=== PATIENT | female | born 1995 | race Caucasian/White ===

== ENCOUNTER 2017-02-24 11:19 | Emergency (ER) | payer OTHER ==
[~2017-02-24] VITALS: Wt 59.5 kg
[~2017-02-24 11:19] MED LIST: FERR27TA PO; PREN1TAB17 PO
[2017-02-24 12:52] LABS: BASOPHILS % 0.3 % (0.0-2.0); EOSINOPHILS % 0.5 % (0.0-7.0); HEMATOCRIT 38.6 % (37.0-47.0); HEMOGLOBIN 12.8 g/dl (12.0-16.0); LYMPHOCYTES # 1.9 10^3/ul (0.8-2.9); LYMPHOCYTES % 31.6 % (15.0-51.0); MEAN CORPUSCULAR HGB CONC 33.2 g/dl (32.0-37.0); MEAN CORPUSCULAR VOLUME 78.5 fl (82.0-101.0); MEAN PLATELET VOLUME 10.8 fl (7.4-10.4); MONOCYTE # 0.4 10^3/ul (0.3-0.9); NEUTROPHIL # 3.7 10^3/ul (1.6-7.5); NEUTROPHILS % 61.3 % (39.0-77.0); PLATELET COUNT 192 10^3/UL (140-415); RED BLOOD COUNT 4.92 10^6/ul (4.20-5.40); RED CELL DISTRIBUTION WIDTH 13.8 % (11.5-14.5)
[2017-02-24 13:06] LABS: ADD UMIC YES; UR ASCORBIC ACID NEGATIVE (NEGATIVE); UR BILIRUBIN (Dip) NEGATIVE (NEGATIVE); UR BLOOD (Dip) 2+ mg/dL (NEGATIVE); UR CLARITY CLEAR (CLEAR); UR COLOR YELLOW (YELLOW); UR GLUCOSE (Dip) NEGATIVE (NEGATIVE); UR KETONES (Dip) NEGATIVE (NEGATIVE); UR LEUKOCYTE ESTERASE (Dip) NEGATIVE Leu/ul (NEGATIVE); UR MUCUS FEW /HPF (NONE SEEN); UR NITRITE (Dip) NEGATIVE (NEGATIVE); UR RBC 0 /HPF (0-5); UR SPECIFIC GRAVITY (Dip) 1.023 (1.003-1.030); UR SQUAMOUS EPITHELIAL CELL FEW /HPF (FEW); UR TOTAL PROTEIN (Dip) NEGATIVE (NEGATIVE); UR UROBILINOGEN (Dip) NEGATIVE (NEGATIVE)
--- NOTE | 2017-02-24 13:13 | RADRPT ---
AMENDMENT: 02/24/2017 1:14:38 PM Jaret Beverly MD These findings were discussed with Ronald Orlando (N) over the phone on 02/24/2017 at 1:10 PM . PROCEDURE: OBSTETRICAL ULTRASOUND WITH ENDOVAGINAL IMAGES CLINICAL INDICATION: , vaginal bleeding TECHNIQUE: Multiple sonographic images of the pelvis were obtained utilizing a transabdominal and endovaginal technique. The images were reviewed on a PACS workstation. COMPARISON: None. LMP: 01/07/2017 FINDINGS: There is a single live intrauterine with heart rate of 132 beats per minute, mean sa c diameter of 2.13 cm, yolk sac, and crown-rump length of 0.60 cm which is consistent with a gestati onal age of 6 weeks, 5 days . The estimated date of delivery by ultrasound is 10/15/2017 . The estimated gestational age by LMP is 6 weeks, 6 days . The estimated date of delivery by LMP is 10/14/2017 . There is a hypoechoic 7 x 5 mm lesion adjacent to the gestational sac consistent with a subchorionic hemorrhage. The right ovary measures 4.4 x 2.4 x 3.2 cm. The left ovary measures 2.7 x 1.0 x 1.8 cm. There is no rmal vascular flow in both ovaries. No significant ovarian lesions are seen. No significant pelvic free fluid is identified. IMPRESSION: Single live intrauterine consistent with a gestational age of 6 weeks, 5 days . The estimated date of delivery is 10/15/2017 . Dating by ultrasound is within 1 day of dating by LMP. 7 mm subchorionic hemorrhage. RPTAT: EE Physician Seven Date Time Electronically viewed and signed by Damon Beverly Physician on 02/24/2017 13:14 /
--- NOTE | 2017-02-24 13:23 | ERD ---
ER Documentation Chief Complaint Date/Time DATE: 02/24/17 TIME: 13:22 Chief Complaint 6 weeks regnat with spotting HPI 21-year-old female is a G2 para 1. She presents with vaginal spotting since this morning. She denies clots or tissue. She denies any cramps or abdominal pain or pelvic pain. She denies vaginal discharge. ROS All systems reviewed and are negative except as per history of present illness. Medications Home Meds Reported Medications Vit-Iron Fumarate-FA ( Tablet) 1 Each Tablet, 1 EACH PO DAILY, #1 01/13/13 Ferrous Sulfate (Iron) 1 Tab Tablet, 1 TAB PO DAILY 01/13/13 Allergies Allergies: Coded Allergies: No Known Allergies (Verified Allergy, 01/14/13) PMhx/Soc History of Surgery: Yes (csection, appendectomy) Anesthesia Reaction: No Hx Neurological Disorder: No Hx Respiratory Disorders: No Hx Cardiac Disorders: No Hx Psychiatric Problems: No Hx Miscellaneous Medical Probl: No Hx Alcohol Use: No Hx Substance Use: No Hx Tobacco Use: No Smoking Status: Never smoker Physical Exam Vitals Vital Signs Date Time Temp Pulse Resp B/P Pulse Ox O2 Delivery O2 Flow Rate FiO2 02/24/17 11:26 98.7 98 18 120/54 99 Physical Exam Const: [] Alert, [id number]. Head: Atraumatic Eyes: Normal Conjunctiva ENT: Normal External Ears, Nose and Mouth. Neck: Full range of motion..~ No meningismus. Resp: Clear to auscultation bilaterally Cardio: Regular rate and rhythm, no murmurs Abd: Soft, non tender, non distended. Normal bowel sounds Skin: No petechiae or rashes Back: No midline or flank tenderness Ext: No cyanosis, or edema Neur: Awake and alert Psych: Normal Mood and Affect Result Diagram: 02/24/17 1235 Results 24 hrs Laboratory Tests Test 02/24/17 12:20 02/24/17 12:35 Urine Color YELLOW Urine Clarity CLEAR Urine pH 5.0 Urine Specific [place] 1.023 Urine Ketones NEGATIVEmg/dL Urine Nitrite NEGATIVEmg/dL Urine Bilirubin NEGATIVEmg/dL Urine Urobilinogen NEGATIVEmg/dL Urine Leukocyte Esterase NEGATIVELeu/ul Urine Microscopic RBC 0/HPF Urine Microscopic WBC 1/HPF Urine Squamous Epithelial Cells FEW/HPF Urine Mucus FEW/HPF Urine Hemoglobin 2+mg/dL Urine Glucose NEGATIVEmg/dL Urine Total Protein NEGATIVEmg/dl White Blood Count 6.010^3/ul Red Blood Count 4.9210^6/ul Hemoglobin 12.8g/dl Hematocrit 38.6% Mean Corpuscular Volume 78.5fl Mean Corpuscular Hemoglobin 26.0pg Mean Corpuscular Hemoglobin Concent 33.2g/dl Red Cell Distribution Width 13.8% Platelet Count 07138^3/UL Mean Platelet Volume 10.8fl Neutrophils % 61.3% Lymphocytes % 31.6% Monocytes % 6.0% Eosinophils % 0.5% Basophils % 0.3% Nucleated Red Blood Cells % 0.0/100WBC Neutrophils # 3.710^3/ul Lymphocytes # 1.910^3/ul Monocytes # 0.410^3/ul Eosinophils # 0.010^3/ul Basophils # 0.010^3/ul Nucleated Red Blood Cells # 0.010^3/ul Procedures/MDM Patient is Rh+. Pelvic ultrasound shows a intrauterine approximately 6 weeks 5 days with positive heart tones 132. There is a small subchorionic hemorrhage. Patient presents with vaginal spotting for 1 day with a normal-appearing intrauterine . There is no evidence of ectopic , ovarian torsion, signs to suggest appendicitis. There is no evidence of tubo-ovarian abscess or PID. She will be treated with further observation at home and primary care follow-up and return precautions. The patient was stable with no new complaints during the ER course. Clinically, there is no current evidence to suggest meningitis, sepsis, acute abdomen, pneumonia, acute coronary syndrome , pulmonary embolism, or any other emergent condition appearing to require further evaluation or hospitalization. The patient should certainly return for any new or worsening symptoms per the aftercare instructions. They should otherwise follow-up with her primary care doctor for reevaluation this week. Departure Diagnosis: Primary Impression: Vaginal bleeding before 22 weeks gestation Condition: Stable Patient Instructions: Vaginal Bleed in Additional Instructions: Ultrasound shows normal-appearing 6 week . Recheck with OB this week. Recheck otherwise for worsening bleeding, fevers, new worsening symptoms. BIRDIE HOWARD MD Feb 24, 2017 13:23
== END 2017-02-24 13:35 | disposition home or self-care (01) ==
LOC: FTE 11:19
DX: O20.9 Hemorrhage in early pregnancy, unspecified (principal); Z3A.01 Less than 8 weeks gestation of pregnancy
CPT/HCPCS: 36415; 76801; 76817; 81001; 84702; 85025; 86900; 86901; Z7502

== ENCOUNTER 2017-03-01 17:15 | Emergency (ER) | payer OTHER ==
[~2017-03-01] VITALS: Ht 157.5 cm; Wt 76.0 kg
[2017-03-01 17:18] VITALS: Ht 157.5 cm; Wt 76.0 kg
--- NOTE | 2017-03-01 19:05 | RADRPT ---
PROCEDURE: OB Ultrasound. CLINICAL INDICATION: Positive test. Vaginal bleeding. TECHNIQUE: Ultrasound of the pelvis was performed with transabdominal sonography in the axial and sagittal planes. COMPARISON: No prior study is available for comparison. FINDINGS: There is a single intrauterine gestational sac. pole and yolk sac are present. There is heart motion. heart rate is 159 beats per minute. [place]-rump length is 1.22 cm. Mean sac diameter is 2.94 cm. There is a small subchorionic hemorrhage. Menstrual age by ultrasound dates is 7 weeks 5 days. This indicates an expected date of delivery of 10/13/2017. The ovaries are not visualized. There is no other pelvic mass or free fluid. IMPRESSION: 1. Single live intrauterine gestation of 7 weeks 5 days menstrual age by ultrasound dates. 2. Expected date of delivery is 10/13/2017. 3. Small subchorionic hemorrhage. 4. Ovaries not visualized. RPTAT: QQ .Ronald Lindo MD, MD Date Time Electronically viewed and signed by .Ronald Lindo MD, on 03/01/2017 19:05 .R/
--- NOTE | 2017-03-01 19:29 | ERD ---
ER Documentation Chief Complaint Date/Time DATE: 03/01/17 TIME: 19:27 Chief Complaint 7 weeks with spotting today HPI This is a 21-year-old female here for vaginal spotting/bleeding. The patient was seen here earlier in the week last week had a 6 week 5 day viable IUP. There was a 7 mm subchorionic hemorrhage. The patient states that she is having some continued spotting/bleeding is mild with occasional mild cramps is no back pain. She was told to follow-up here if she continued to bleed since she is here for reevaluation. She has not passed any tissue or clots. No back pain fever dysuria ROS All systems reviewed and are negative except as per history of present illness. Allergies Allergies: Coded Allergies: No Known Allergy (Unverified , 03/01/17) PMhx/Soc Medical and Surgical Hx: pt denies Medical Hx, pt denies Surgical Hx History of Surgery: Yes (APPENDECTOMY) Anesthesia Reaction: No Hx Neurological Disorder: No Hx Respiratory Disorders: No Hx Cardiac Disorders: No Hx Psychiatric Problems: No Hx Miscellaneous Medical Probl: No Hx Alcohol Use: No Hx Substance Use: No Hx Tobacco Use: No Smoking Status: Never smoker FmHx Family History: No coronary disease Physical Exam Vitals Vital Signs Date Time Temp Pulse Resp B/P Pulse Ox O2 Delivery O2 Flow Rate FiO2 03/01/17 17:18 98.1 68 18 101/64 99 Physical Exam Const: Well-developed, well-nourished Head: Atraumatic, normocephalic Eyes: Normal Conjunctiva, PERRLA, EOMI, normal sclera, no nystagmus ENT: Normal External Ears, Nose and Mouth, moist mucus membranes. Neck: Full range of motion. No meningismus, no lymphadenopathy. Resp: Clear to auscultation bilaterally, no wheezing, rhonchi, rales Cardio: Regular rate and rhythm, no murmurs, S1 S2 present Abd: Soft, non tender x 4, non distended. Normal bowel sounds, no guarding or rebound, no pulsitile abdominal masses or bruits Skin: No petechiae or rashes, no ecchymosis , no maculopapular rash Back: No midline or flank tenderness Ext: No cyanosis, or edema, FROM x 4, normal inspection, neurovascularly intact x 4 Neur: Awake and alert, STR 5/5 x 4, sensation intact x 4, no focal findings, cerebellum intact Psych: Normal Mood and Affect Procedures/MDM PROCEDURE: OB Ultrasound. CLINICAL INDICATION: Positive test. Vaginal bleeding. TECHNIQUE: Ultrasound of the pelvis was performed with transabdominal sonography in the axial and sagittal planes. COMPARISON: No prior study is available for comparison. FINDINGS: There is a single intrauterine gestational sac. pole and yolk sac are present. There is heart motion. heart rate is 159 beats per minute. [place]-rump length is 1.22 cm. Mean sac diameter is 2.94 cm. There is a small subchorionic hemorrhage. Menstrual age by ultrasound dates is 7 weeks 5 days. This indicates an expected date of delivery of 10/13/2017. The ovaries are not visualized. There is no other pelvic mass or free fluid. IMPRESSION: 1. Single live intrauterine gestation of 7 weeks 5 days menstrual age by ultrasound dates. 2. Expected date of delivery is 10/13/2017. 3. Small subchorionic hemorrhage. 4. Ovaries not visualized. RPTAT: QQ .Ronald Lindo MD, MD Date Time Electronically viewed and signed by .Ronald Lindo MD, MD on 03/01/2017 19:05 .R/ CC: ROSE BYERS DO Blood type is A+. Patient still has a viable IUP. Have advised bed rest and plenty of water and return if she is Departure Diagnosis: Primary Impression: Threatened miscarriage Condition: Stable Patient Instructions: Possible Miscarriage (Threatened ) ROSE BYERS DO Mar 01, 2017 19:29
[2017-03-01 19:40] VITALS: BP 105/63; PULSE 76; RESP 18; TEMP 98.1
== END 2017-03-01 19:40 | disposition home or self-care (01) ==
LOC: MERGE 17:15 → FTE 17:15
DX: O20.0 Threatened abortion (principal); Z3A.01 Less than 8 weeks gestation of pregnancy
CPT/HCPCS: 76801; 84702; 86900; 86901; Z7502

== ENCOUNTER 2017-10-13 12:27 | Emergency (ER) | END 2017-10-13 17:09 | disposition home or self-care (01) ==